=== PATIENT | female | born 1990 | race Caucasian/White ===

== ENCOUNTER 2016-07-07 20:51 | Emergency (ER) | payer SELFPAY ==
[2016-07-07 21:02] VITALS: BP 135/89
[2016-07-07] MEDS ORDERED: HYDROcodone/ACETAMIN 5-325 MG* 1 TAB PO ONE ×2 (21:27→21:28)
[2016-07-07] MEDS ORDERED: Azithromycin TAB* 250 MG PO ONE (22:03)
--- NOTE | 2016-07-07 22:10 | RAD ---
Indication: Right hand injury. 4 views of the right hand demonstrates internal fixation of a fifth metacarpal fracture. Fracture fragments are near anatomic alignment. IMPRESSION: Internal fixation fifth metacarpal fracture.
--- NOTE | 2016-07-07 22:28 | UC ---
Neri Ramirez Karl, scribed for Renetta Sutton MD on 07/07/16 at 2130 . Upper Extremity HPI - HPI Summary HPI Summary: Pt is a 25 y/o female that presents to [facility] c/o misplaced pins in her right hand /right 5th finger from a glove former fracture on 06/04/16. Pt had surgery on her right hand by DR. Lay (Ortho) on 06/13/16 but pins were bent into her finger after wrestling with her boyfriend 2 days ago which displaced them, digging them into her finger. Pt had removed the splint on her own. She states she had an allergic reaction to the padding. Did not get a chance to call orthopedics today until after they were closed for the day. - History of Current Complaint Chief Complaint: UCUpperExtremity Stated Complaint: RT HAND PAIN-BENT PIN Time Seen by Provider: 07/07/16 21:13 Hx Obtained From: Patient, Family/Inspector Plumbing - sister Hx Last Menstrual Period: 06/24/16 Onset/Duration: Sudden Onset, Lasting Days, Still Present Severity Initially: Moderate Severity Currently: Moderate Pain Intensity: 9 - right 5th finger Pain Scale Used: 0-10 Numeric Location Of Pain: Is Discrete @ - right 5th finger Character: Aching Aggravating Factor(s): Movement Alleviating Factor(s): Nothing Associated Signs And Symptoms: Positive: Swelling, Redness. Negative: Bruising , Fever Related History: Dominant Hand Right - Risk Factors Non-Orthopedic Risk Factor: Negative DVT Risk Factors: Negative Septic Arthritis Risk Factor: Negative - Allergies/Home Medications Allergies/Adverse Reactions: Allergies Allergy/AdvReac Type Severity Reaction Status Date / Time Adhesive Tape Allergy Severe Rash Verified 07/07/16 21:02 Amoxicillin Allergy Intermediate Hives Verified 07/07/16 21:02 DETERGENTS Allergy Rash Uncoded 06/13/16 10:27 Home Medications: Home Medications Ibuprofen TAB* [Advil TAB*] 1,000 mg PO PRN 07/07/16 [History] PMH/Surg Hx/FS Hx/Imm Hx Endocrine History Of: Reports: Diabetes - POSSIBLE, NO TESTING DONE Denies: Thyroid Disease, Hyperthyroidism, Hypothyroidism, Dyslipidemia Cardiovascular History Of: Denies: Cardiac Disorders, Hypertension, Pacemaker/ICD, Myocardial Infarction , Congestive Heart Failure, Atrial Fibrillation, Deep Vein Thrombosis, Bleeding Disorders Respiratory History Of: Denies: COPD, Asthma, Bronchitis, Pneumonia, Pulmonary Embolism GI/ History Of: Denies: Gastroesophageal Reflux, Ulcer, Gastrointestinal Bleed, Gall Bladder Disease, Kidney Stones, Diverticulitis, Renal Disease, Urosepsis Neurological History Of: Reports: Migraine - LATELY, EASED WITH TYLENOL OR ADVIL Denies: TIA, CVA, Dementia, Seizures Psychological History Of: Reports: Anxiety - No medications., Depression - For 12 years. 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 internal fixation right 5th digit 05/2016 - Family History Known Family History: Positive: Cardiac Disease, Hypertension, Diabetes - Social History Alcohol Use: None Alcohol Amount: HOLIDAYS ONLY Substance Use Type: None Smoking Status (MU): Current Every Day Smoker Type: Cigarettes Amount Used/How Often: 1/2 ppd. Have You Smoked in the Last Year: Yes - Immunization History Most Recent Influenza Vaccination: never Most Recent Tetanus Shot: none Most Recent Pneumonia Vaccination: never Review of Systems Constitutional: Negative Skin: Other - redness swelling near surgical pins right hand Eyes: Negative ENT: Negative Respiratory: Negative Cardiovascular: Negative Gastrointestinal: Negative Genitourinary: Negative Motor: Negative Neurovascular: Negative Musculoskeletal: Arthralgia - right hand/right 5th finger Neurological: Negative Psychological: Negative All Other Systems Reviewed And Are Negative: Yes Physical Exam Triage Information Reviewed: Yes Appearance: Well-Appearing, Well-Nourished, Pain Distress - mild Vital Signs: Initial Vital Signs Temp 97.1 F 07/07/16 20:56 Pulse 87 07/07/16 20:56 Resp 16 07/07/16 20:56 BP 135/89 07/07/16 20:56 Pulse Ox 100 07/07/16 20:56 Vital Signs Reviewed: Yes Eyes: Positive: Conjunctiva Clear ENT: Positive: Normal ENT inspection Neck: Positive: Supple Respiratory: Positive: No respiratory distress Cardiovascular: Positive: RRR, Pulses Normal, Brisk Capillary Refill Musculoskeletal: Positive: Strength Limited @ - right 5th finger, ROM Limited @ - right 5 th finger, Other: - swelling of right 5th finger MCP, surgical pins at MCP are rotated and almost piercing the skin, no redness, no wound; painful to touch; limited ROM right 5th finger Neurological: Positive: Alert, Muscle Tone Normal Psychological Exam: Normal Skin Exam: Normal Upper Extremity Course/Dx - Course Course Of Treatment: xray=healing fracture, pins in place - Differential Dx/Diagnosis Differential Diagnosis/HQI/PQRI: Fracture (Closed), Strain, Sprain Provider Diagnoses: rotated surgical pins after injury. s/p internal fixation of 5th metacarpal fracture Discharge - Discharge Plan Condition: Stable Disposition: HOME Prescriptions: Azithromycin TAB* [Zithromax TAB (Z-AMISHA)*] 250 mg PO DAILY #4 tab Patient Education Materials: [facility] (ED) Referrals: Harrison Wilburn MD [Medical Doctor] - 1 Day No Primary Care Phys,NOPCP [Primary Care Provider] - Additional Instructions: Dr. Sutton recommends that you should see Dr. Lay tomorrow 07/08/16, if possible. Otherwise please have any of the orthopedic providers see you tomorrow. Dr. Sutton gave your first dose of azithromycin to prevent infection. Go to the emergency room if you have new or worsening symptoms. The documentation as recorded by the Neri lowry Karl accurately reflects the service I personally performed and the decisions made by , Renetta Sutton MD.
== END 2016-07-07 22:15 | disposition home or self-care (01) ==
LOC: UCEAST 20:51
DX: T84.89XA Other specified complication of internal orthopedic prosthetic devices, implants and grafts, initial encounter (principal); Z88.0 Allergy status to penicillin; F17.210 Nicotine dependence, cigarettes, uncomplicated
CPT/HCPCS: 99213; A9270-GY; G0463

== ENCOUNTER 2017-01-15 10:36 | Emergency (ER) | payer MEDICAID | END 2017-01-15 11:30 | disposition left against medical advice (07) | LOC: UCEAST 10:36 | DX: M79.643 Pain in unspecified hand (principal); Z53.21 Procedure and treatment not carried out due to patient leaving prior to being seen by health care provider ==

== ENCOUNTER 2017-02-25 10:34 | Emergency (ER) | payer MEDICAID, OTHER ==
[2017-02-25] MEDS ORDERED: NS 0.9% 1000 ML* 1,000 ML IV ONE (11:46)
[2017-02-25 12:14] LABS: Hematocrit 35 % (35-47); Hemoglobin 11.6 g/dl (12.0-16.0); Mean Corpuscular HGB Conc 33 g/dl (31-36); Mean Corpuscular Hemoglobin 32 pg (27-31); Mean Corpuscular Volume 96 fL (80-97); Mean Platelet Volume 8 um3 (7.4-10.4); Red Blood Count 3.65 10^6/ul (4.0-5.4); Red Cell Distribution Width 12 % (10.5-15); White Blood Count 7.5 10^3/ul (3.5-10.8)
[2017-02-25 12:25] LABS: ALT 9 U/L (7-52); AST 11 U/L (13-39); Albumin 3.5 g/dL (3.2-5.2); Alkaline Phosphatase 33 U/L (34-104); Anion Gap 2 mmol/L (2-11); BUN/Creatinine Ratio 12.7 (8-20); Blood Urea Nitrogen 7 mg/dL (6-24); C Reactive Protein < 1.00 mg/L (< 5.00); CO2 Carbon Dioxide 27 mmol/L (22-32); Calcium 9.7 mg/dL (8.6-10.3); Chloride 109 mmol/L (101-111); EGFR African American 169.3 (>60); EGFR Non-African American 131.6 (>60); Globulin 2.6 g/dL (2-4); Glucose 88 mg/dL (70-100); Lipase 27 U/L (11.0-82.0); Potassium 3.6 mmol/L (3.5-5.0); Sodium 138 mmol/L (133-145); Total Protein 6.1 g/dL (6.4-8.9)
--- NOTE | 2017-02-25 12:38 | RAD ---
INDICATION: Right lower quadrant pain. COMPARISON: There are no prior studies available for comparison. TECHNIQUE: Multiple real-time images of the right lower quadrant were obtained using a graded compression technique. FINDINGS: No free intraperitoneal fluid or localized fluid collections are seen. The appendix was not visualized limiting the study. IMPRESSION: THE APPENDIX WAS NOT VISUALIZED LIMITING THE STUDY.
[2017-02-25 12:41] LABS: Urine Bacteria 1+ (Absent); Urine Bilirubin Negative (Negative); Urine Glucose Negative (Negative); Urine Nitrite Negative (Negative)
--- NOTE | 2017-02-25 12:45 | RAD ---
Indication: RIGHT lower quadrant pain. Early . Beta hCG 69. Comparison: August 28, 2009 ultrasound. Technique: Transvaginal pelvic/ obstetrical ultrasound. Report: 8.1 x 4.0 x 4.9 cm uterus with 7.9 mm endometrium. No intrauterine gestational sac evident. Trace fluid in the endocervical canal. 4.2 x 1.6 x 2.2 cm RIGHT ovary with documented vascular flow is remarkable for multiple small peripheral follicles only. 5.8 x 3.8 x 6.1 cm LEFT ovary with documented vascular flow is remarkable for a 4.5 x 3.3 x 4.8 cm cyst with a reticulated pattern of low level internal echoes devoid of intrinsic vascularity consistent with a hemorrhagic cyst. No extraovarian adnexal region lesions visualized. Trace physiologic range free fluid in the LEFT adnexal region. IMPRESSION: 1. No intrauterine gestation or suspicious adnexal region lesion evident. In absence of a documented IUP ectopic is not entirely excluded. Close beta-HCG, clinical, and sonographic follow-up suggested as deemed appropriate. 2. 4.5 cm LEFT intraovarian lesion consistent with a hemorrhagic cyst based on sonographic characteristics. Normal vascular flow to the LEFT ovary documented. In absence of an intervening clinical concern reassessment of this low suspicion lesion with ultrasound in approximate 1months time suggested.
[2017-02-25] MEDS ORDERED: Morphine INJ* 4 MG/ML 1 ML SYRINGE IV ONE (14:17)
[2017-02-25] MEDS ORDERED: Ondansetron INJ* 2 MG/ML VIAL IV ONE (14:17)
--- NOTE | 2017-02-25 14:28 | RAD ---
INDICATION: Right lower quadrant pain, hematuria COMPARISON: Comparison is made with a prior CT of the abdomen and pelvis April 30, 2015. TECHNIQUE: Multiple real-time images of the right kidney were obtained. FINDINGS: The right kidney is normal in size shape and echogenicity. The kidney measured 11.1 x 3.6 x 5.5 cm. No significant focal abnormality or hydronephrosis was present. There are symmetric bilateral ureterovesical jets present. IMPRESSION: NEGATIVE EXAM, NO EVIDENCE FOR HYDRONEPHROSIS.
[2017-02-25] MEDS ORDERED: Nitrofurantoin Macrocrystals* 50 MG CAP PO ONE (15:12)
--- NOTE | 2017-02-25 15:21 | ED ---
Charles Ramirez Alfonso, scribed for Osiel Dill MD on 02/25/17 at 1143 . Abdominal Pain/Female - HPI Summary HPI Summary: This patient is a 26 year old F presenting to [facility] accompanied by male with a chief complaint of RLQ abdominal pain gradually worsening since one week ago. The CC is described as sharp. The patient rates the pain 7/10 in severity. Symptoms aggravated by nothing. Symptoms alleviated by nothing. Patient reports constipation (few days). Patient denies fever, chills, loss of appetite, N/V, urinary symptoms, vaginal discharge, and rash. She reports being 6 weeks . A0. LMP in October. PSHx of left ovary tumor removal. Medications reviewed. - History of Current Complaint Chief Complaint: EDAbdPain Stated Complaint: 6WKS PREG/RT SIDE ABD PAIN Time Seen by Provider: 02/25/17 11:37 Hx Obtained From: Patient Hx Last Menstrual Period: May ?: Yes Onset/Duration: Gradual Onset, Lasting Weeks - 1, Still Present Timing: Weeks - 1 Severity Initially: Moderate Severity Currently: Moderate Pain Intensity: 7 Pain Scale Used: 0-10 Numeric Location: Discrete At: RLQ Character: Sharp Aggravating Factor(s): Nothing Alleviating Factor(s): Nothing Associated Signs and Symptoms: Positive: Other: - Patient reports constipation ( few days). Patient denies fever, chills, loss of appetite, N/V, urinary symptoms , vaginal discharge, and rash. Allergies/Adverse Reactions: Allergies Allergy/AdvReac Type Severity Reaction Status Date / Time Adhesive Tape Allergy Severe Rash Verified 02/25/17 10:43 Amoxicillin Allergy Intermediate Hives Verified 02/25/17 10:43 DETERGENTS Allergy Rash Uncoded 02/25/17 10:43 PMH/Surg Hx/FS Hx/Imm Hx Endocrine/Hematology History: Reports: Hx Diabetes - POSSIBLE, NO TESTING DONE Denies: Hx Anticoagulant Therapy, Hx Thyroid Disease Cardiovascular History: Denies: Hx Congestive Heart Failure, Hx Deep Vein Thrombosis, Hx Hypertension , Hx Myocardial Infarction, Hx Pacemaker/ICD, Other Cardiovascular Problems/ Disorders Respiratory History: Denies: Hx Asthma, Hx Chronic Obstructive Pulmonary Disease (COPD), Hx Lung Cancer, Hx Pneumonia, Hx Pulmonary Embolism, Other Respiratory Problems/ Disorders GI History: Denies: Hx Gall Bladder Disease, Hx Gastrointestinal Bleed, Hx Ulcer, Hx Urosepsis, Other GI Disorders History: Reports: Hx Kidney Infection Denies: Hx Kidney Stones, Hx Renal Disease Musculoskeletal History: Reports: Hx Tendonitis - RIGHT ELBOW Sensory History: Reports: Hx Contacts or Glasses - GLASSES Denies: Hx Hearing Aid Opthamlomology History: Reports: Hx Contacts or Glasses - GLASSES Neurological History: Reports: Hx Migraine - LATELY, EASED WITH TYLENOL OR ADVIL Denies: Hx Dementia, Hx Seizures, Hx Transient Ischemic Attacks (TIA), Other Neuro Impairments/Disorders Psychiatric History: Reports: Hx Anxiety - No medications., Hx Depression - For 12 years. 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 internal fixation right 5th digit 05/2016. left ovary tumor removal. Hx Anesthesia Reactions: Yes - N/V Infectious Disease History: No Infectious Disease History: Denies: Hx Clostridium Difficile, Hx Hepatitis, Hx Human Immunodeficiency Virus (HIV), Hx of Known/Suspected MRSA, Hx Shingles, Hx Tuberculosis, Hx Known/ Suspected VRE, Hx Known/Suspected VRSA, History Other Infectious Disease, Traveled Outside the [place] in Last 30 Days - Family History Known Family History: Positive: Cardiac Disease, Hypertension, Diabetes - Social History Alcohol Use: None Alcohol Amount: HOLIDAYS ONLY Substance Use Type: Reports: None Hx Tobacco Use: Yes Smoking Status (MU): Current Every Day Smoker Type: Cigarettes Amount Used/How Often: 1/2 ppd. Have You Smoked in the Last Year: Yes Review of Systems Negative: Fever, Chills Positive: Abdominal Pain, Other - Constipation; negative loss of appetite. Negative: Vomiting, Nausea Positive: no symptoms reported, other - Negative vaginal discharge Negative: Rash All Other Systems Reviewed And Are Negative: Yes Physical Exam Triage Information Reviewed: Yes Vital Signs On Initial Exam: Initial Vitals Temp Pulse Resp BP Pulse Ox 98.4 F 93 16 120/68 100 02/25/17 10:43 02/25/17 10:43 02/25/17 10:43 02/25/17 10:43 02/25/17 10:43 Vital Signs Reviewed: Yes Appearance: Positive: Well-Appearing, No Pain Distress Skin: Positive: Warm, Skin Color Reflects Adequate Perfusion, Dry Head/Face: Positive: Normal Head/Face Inspection Eyes: Positive: EOMI, FREDERIC ENT: Positive: Normal ENT inspection Neck: Positive: Supple, Nontender Respiratory/Lung Sounds: Positive: Clear to Auscultation, Breath Sounds Present Cardiovascular: Positive: RRR Abdomen Description: Positive: Other: - RLQ tenderness Bowel Sounds: Positive: Hypoactive Pelvic Exam: Positive: other - Normal exam. Female RN present. Affirm and GC chlamydia was obtained. Musculoskeletal: Positive: Strength/ROM Intact, Other - Tender to heal strike on right. Negative obturator sign. Neurological: Positive: Normal, Sensory/Motor Intact, Alert, Oriented to Person Place, Time Psychiatric: Positive: Affect/Mood Appropriate - L[place]a Coma Scale Coma Scale Total: 15 Diagnostics - Vital Signs Vital Signs Temp Pulse Resp BP Pulse Ox 02/25/17 11:27 99.3 F 93 16 120/68 99 02/25/17 10:43 98.4 F 93 16 120/68 100 - Laboratory Lab Results: Lab Results 02/25/17 02/25/17 02/25/17 Range/Units 11:59 11:59 11:59 WBC (3.5-10.8) 10^3/ul RBC (4.0-5.4) 10^6/ul Hgb (12.0-16.0) g/dl Hct (35-47) % MCV (80-97) fL MCH (27-31) pg MCHC (31-36) g/dl RDW (10.5-15) % Plt Count (150-450) 10^3/ul MPV (7.4-10.4) um3 Neut % (Auto) (38-83) % Lymph % (Auto) (25-47) % [place] % (Auto) (1-9) % Eos % (Auto) (0-6) % Baso % (Auto) (0-2) % Absolute Neuts (auto) (1.5-7.7) 10^3/ul Absolute Lymphs (auto) (1.0-4.8) 10^3/ul Absolute Monos (auto) (0-0.8) 10^3/ul Absolute Eos (auto) (0-0.6) 10^3/ul Absolute Basos (auto) (0-0.2) 10^3/ul Absolute Nucleated RBC 10^3/ul Nucleated RBC % INR (Anticoag Therapy) 0.97 (0.89-1.11) APTT 30.6 (26.0-36.3) seconds Sodium 138 (133-145) mmol/L Potassium 3.6 (3.5-5.0) mmol/L Chloride 109 (101-111) mmol/L Carbon Dioxide 27 (22-32) mmol/L Anion Gap 2 (2-11) mmol/L BUN 7 (6-24) mg/dL Creatinine 0.55 (0.51-0.95) mg/dL Est GFR ( Amer) 169.3 (>60) Est GFR (Non-Af Amer) 131.6 (>60) BUN/Creatinine Ratio 12.7 (8-20) Glucose 88 (70-100) mg/dL Lactic Acid (0.5-2.0) mmol/L Calcium 9.7 (8.6-10.3) mg/dL Total Bilirubin 0.20 (0.2-1.0) mg/dL AST 11 L (13-39) U/L ALT 9 (7-52) U/L Alkaline Phosphatase 33 L (34-104) U/L C-Reactive Protein < 1.00 (< 5.00) mg/L Total Protein 6.1 L (6.4-8.9) g/dL Albumin 3.5 (3.2-5.2) g/dL Globulin 2.6 (2-4) g/dL Albumin/Globulin Ratio 1.3 (1-3) Lipase 27 (11.0-82.0) U/L Beta HCG, Quant 69.79 mIU/mL Urine Color Urine Appearance Urine pH (5-9) Ur Specific [place] (1.010-1.030) Urine Protein (Negative) Urine Ketones (Negative) Urine Blood (Negative) Urine Nitrate (Negative) Urine Bilirubin (Negative) Urine Urobilinogen (Negative) Ur Leukocyte Esterase (Negative) Urine WBC (Auto) (Absent) Urine RBC (Auto) (Absent) Ur Squamous Epith Cells (Absent) Calcium Oxalate Crystal (Absent) Urine Bacteria (Absent) Hyaline Casts (Absent) Urine Glucose (Negative) Urine Ascorbic Acid (Negative) Blood Type A Positive 02/25/17 02/25/17 02/25/17 Range/Units 11:59 11:59 12:02 WBC 7.5 (3.5-10.8) 10^3/ul RBC 3.65 L (4.0-5.4) 10^6/ul Hgb 11.6 L (12.0-16.0) g/dl Hct 35 (35-47) % MCV 96 (80-97) fL MCH 32 H (27-31) pg MCHC 33 (31-36) g/dl RDW 12 (10.5-15) % Plt Count 262 (150-450) 10^3/ul MPV 8 (7.4-10.4) um3 Neut % (Auto) 53.9 (38-83) % Lymph % (Auto) 37.9 (25-47) % [place] % (Auto) 7.0 (1-9) % Eos % (Auto) 0.7 (0-6) % Baso % (Auto) 0.5 (0-2) % Absolute Neuts (auto) 4.0 (1.5-7.7) 10^3/ul Absolute Lymphs (auto) 2.8 (1.0-4.8) 10^3/ul Absolute Monos (auto) 0.5 (0-0.8) 10^3/ul Absolute Eos (auto) 0.1 (0-0.6) 10^3/ul Absolute Basos (auto) 0 (0-0.2) 10^3/ul Absolute Nucleated RBC 0 10^3/ul Nucleated RBC % 0 INR (Anticoag Therapy) (0.89-1.11) APTT (26.0-36.3) seconds Sodium (133-145) mmol/L Potassium (3.5-5.0) mmol/L Chloride (101-111) mmol/L Carbon Dioxide (22-32) mmol/L Anion Gap (2-11) mmol/L BUN (6-24) mg/dL Creatinine (0.51-0.95) mg/dL Est GFR ( Amer) (>60) Est GFR (Non-Af Amer) (>60) BUN/Creatinine Ratio (8-20) Glucose (70-100) mg/dL Lactic Acid 1.5 (0.5-2.0) mmol/L Calcium (8.6-10.3) mg/dL Total Bilirubin (0.2-1.0) mg/dL AST (13-39) U/L ALT (7-52) U/L Alkaline Phosphatase (34-104) U/L C-Reactive Protein (< 5.00) mg/L Total Protein (6.4-8.9) g/dL Albumin (3.2-5.2) g/dL Globulin (2-4) g/dL Albumin/Globulin Ratio (1-3) Lipase (11.0-82.0) U/L Beta HCG, Quant mIU/mL Urine Color Yellow Urine Appearance Cloudy Urine pH 5.0 (5-9) Ur Specific [place] 1.020 (1.010-1.030) Urine Protein 1+(30 mg/dl) H (Negative) Urine Ketones Trace H (Negative) Urine Blood Negative (Negative) Urine Nitrate Negative (Negative) Urine Bilirubin Negative (Negative) Urine Urobilinogen Negative (Negative) Ur Leukocyte Esterase Trace H (Negative) Urine WBC (Auto) 1+(6-10/hpf) H (Absent) Urine RBC (Auto) 2+(6-10/hpf) H (Absent) Ur Squamous Epith Cells Present H (Absent) Calcium Oxalate Crystal Present H (Absent) Urine Bacteria 1+ H (Absent) Hyaline Casts Present H (Absent) Urine Glucose Negative (Negative) Urine Ascorbic Acid * H (Negative) Blood Type Result Diagrams: 02/25/17 11:59 02/25/17 11:59 Lab Statement: Any lab studies that have been ordered have been reviewed, and results considered in the medical decision making process. - Additional Comments Diagnostic Additional Comments: Abdominal US reveals, per radiologist, THE APPENDIX WAS NOT VISUALIZED LIMITING THE STUDY. ED physician has reviewed this radiology report and agrees. US reveals, per radiologist, 1. No intrauterine gestation or suspicious adnexal region lesion evident. In absence of a documented IUP ectopic is not entirely excluded. Close beta-HCG, clinical, and sonographic follow-up suggested as deemed appropriate. 2. 4.5 cm LEFT intraovarian lesion consistent with a hemorrhagic cyst based on sonographic characteristics. Normal vascular flow to the LEFT ovary documented. In absence of an intervening clinical concern reassessment of this low suspicion lesion with ultrasound in approximate 1months time suggested. ED physician has reviewed this radiology report and agrees. Renal US reveals, per radiologist, NEGATIVE EXAM, NO EVIDENCE FOR HYDRONEPHROSIS. ED physician has reviewed this radiology report and agrees. Abdominal Pain Fem Course/Dx - Course Course Of Treatment: DISCUSSED RESULTS WITH PATIENT/. DISCUSSED WITH OBGYN, DR CRUZ; WITH LOW QUANT HCG RISK OF COMPLICATIONS LOW. THE PLAN IS TO GET THE QUANT HCG RECHECKED AND HAVE OB F/U IN 2 DAYS, 02/27/17. DISCUSSED WITH SURGERY, DR KELLOGG. THE DAVE SCORE IS LOW MAKING APPENDICITIS RISK LOW. WILL START MACROBID FOR THE WBCS IN THE URINE. NO HYDO WITH GOOD JETS SO, KIDNEY STONES UNLIKELY. PATIENT WILL F/U WITH OB. SHE WILL RETURN TO THE ED IF HER CONDITION WORSENS OR QUESTIONS OR CONCERNS. - Diagnoses Provider Diagnoses: Abdominal pain during - Provider Notifications Discussed Care Of Patient With: Jc Cruz Time Discussed With Above Provider: 13:55 Instructed by Provider To: Other - Consulted Dr. Cruz (OBGYN) at 1355 who thinks it is either a failed ectopic or failed uterine . He recommends a beta HCG quantitative recheck in two days and follow up with OBGYN in two days. Consulted Dr. Kellogg (surgeon) at 1444 who states because of a low dave score at this time the patient can follow up as an out patient. Discharge - Discharge Plan Condition: Stable Disposition: HOME Prescriptions: HYDROcodone/ACETAMIN 5-325 MG* [[place] 5-325 TAB*] 1 tab PO Q4H PRN #20 tab MDD 6 PRN Reason: Pain Nitrofurantoin Monohyd Macro [Macrobid] 100 mg PO BID #14 cap Patient Education Materials: Abdominal Pain in (ED) Referrals: [facility] [Outside] Jc Cruz MD [Medical Doctor] - 2 Days [facility] [Provider Group] Additional Instructions: GET YOUR BLOOD TEST RECHECKED AND FOLLOW UP WITH OBGYN IN 2 DAYS, . CALL [facility] TODAY TO ARRANGE FOLLOW UP. RETURN TO THE EMERGENCY DEPARTMENT FOR ANY WORSENING OF YOUR CONDITION; PAIN, FEVER, YOU FEEL ILL, YOU FEEL LIKE PASSING OUT, ABNORMAL VAGINAL BLEEDING OR QUESTIONS OR CONCERNS. The documentation as recorded by the Charles lowry Alfonso accurately reflects the service I personally performed and the decisions made by me, Osiel Dill MD.
[2017-02-25 15:46] VITALS: BP 110/87
== END 2017-02-25 15:47 | disposition home or self-care (01) ==
LOC: ED 10:34
DX: Z3A.01 Less than 8 weeks gestation of pregnancy (principal); R10.31 Right lower quadrant pain; O26.891 Other specified pregnancy related conditions, first trimester; N83.9 Noninflammatory disorder of ovary, fallopian tube and broad ligament, unspecified; K59.00 Constipation, unspecified; Z88.1 Allergy status to other antibiotic agents; Z91.048 Other nonmedicinal substance allergy status; F17.210 Nicotine dependence, cigarettes, uncomplicated
CPT/HCPCS: 36415; 76705; 76775; 76801; 80053; 81003; 81015; 83605; 83690; 84702; 85025; 85610; 85730; 86140; 86900; 86901; 87077; 87086; 87186; 87480; 87491; 87510; 87591; 87661; 96361; 96374; 96375; 99284; A9270-GY; J2270; J2405

== ENCOUNTER 2017-09-06 15:19 | Emergency (ER) | payer OTHER ==
[2017-09-06 16:28] LABS: Urine Appearance Turbid; Urine Color Red
[2017-09-06 18:20] LABS: ABS Basophils 0.1 10^3/ul (0-0.2); ABS Eosinophils 0.1 10^3/ul (0-0.6); ABS Lymphocytes 3.1 10^3/ul (1.0-4.8); ABS Monocytes 0.6 10^3/ul (0-0.8); ABS Nucleated RBC 0 10^3/ul; Eosinophil % 0.7 % (0-6); Hematocrit 37 % (35-47); Hemoglobin 12.5 g/dl (12.0-16.0); Lymphocyte % 35.1 % (25-47); Mean Corpuscular HGB Conc 34 g/dl (31-36); Mean Corpuscular Hemoglobin 31 pg (27-31); Mean Corpuscular Volume 94 fL (80-97); Mean Platelet Volume 7 um3 (7.4-10.4); Nucleated Red Blood Cells % 0; Platelet Count 451 10^3/ul (150-450); Red Cell Distribution Width 13 % (10.5-15); White Blood Count 8.8 10^3/ul (3.5-10.8)
[2017-09-06 18:28] LABS: INR 0.88 (0.77-1.02)
[2017-09-06 18:37] VITALS: BP 109/63
[2017-09-06 18:38] LABS: EGFR Non-African American 143.6 (>60)
--- NOTE | 2017-09-06 18:53 | RAD ---
CLINICAL HISTORY: Flank pain, hematuria COMPARISON: April 30, 2015 TECHNIQUE: Multiple contiguous axial CT scans were obtained of the abdomen and pelvis, without intravenous contrast enhancement. Coronal and sagittal multiplanar reformations are submitted for review. Oral contrast was not administered. FINDINGS: The study is limited by the lack of intravenous contrast. This limits evaluation of the solid organs and vasculature. LUNG BASES: The lung bases are clear. LIVER: The liver is normal in shape, size, contour, and attenuation. BILE DUCTS: There is no intrahepatic or extrahepatic biliary dilatation. GALLBLADDER: The gallbladder is incompletely distended but is grossly normal PANCREAS: The pancreas is normal, without mass or ductal dilatation. SPLEEN: Normal in size and appearance. UPPER GI TRACT: Evaluation of the gastrointestinal tract is limited by incomplete gastric distention. The upper GI tract is unremarkable. SMALL BOWEL AND MESENTERY: The small bowel is normal in contour, course, and caliber. There is no obstruction or dilatation. COLON: The colon is normal in contour, course, caliber. There is no pericolonic inflammatory change. There is a tubular, vermiform, hollow viscus that is blind ending, and originates from the cecum, consistent with a normal appendix. There is no periappendiceal inflammatory change. This is best seen on coronal image 42 ADRENALS: Normal bilaterally. KIDNEYS: There are punctate calyceal stones bilaterally. There is no appreciable hydronephrosis. BLADDER: The bladder is smooth in contour. PELVIC ORGANS: There is a 5.8 cm cyst of the right hemipelvis. The pelvic organs are otherwise unremarkable. AORTA: The aorta is normal. IVC: Unremarkable LYMPH NODES: There is no lymphadenopathy by size criteria. ABDOMINAL WALL: There is no evidence for abdominal wall hernia. BONES AND SOFT TISSUES: Unremarkable OTHER: None IMPRESSION: 1. PUNCTATE NONOBSTRUCTING RENAL CALYCEAL STONES BILATERALLY. 2. 5.8 CM CYST OF THE RIGHT HEMIPELVIS, LIKELY A LARGE OVARIAN CYST.
[2017-09-06] MEDS ORDERED: Ondansetron INJ* 2 MG/ML VIAL IV ONE (19:20)
[2017-09-06] MEDS ORDERED: HYDROmorphone INJ* 1 MG/ML CARPUJECT SYRINGE IV ONE (19:20)
--- NOTE | 2017-09-06 20:36 | RAD ---
HISTORY: Gross hematuria, right-sided pelvic pain COMPARISONS: CT dated September 06, 2012, pelvic ultrasound dated August 28, 2009 TECHNIQUE: Multiple transverse and longitudinal ultrasound images were obtained of the pelvis using grayscale, color Doppler, and spectral Doppler imaging using the endovaginal transducer. FINDINGS: UTERUS: The uterus measures 7.4 x 3.6 x 4.7 cm. The uterus is normal in shape, size, contour, and echotexture. There is a small cervical nabothian cyst. ENDOMETRIUM: The endometrial stripe is smooth. The endometrium measures 0.7 cm in thickness. CUL-DE-SAC: There is no free fluid within the cul-de-sac. RIGHT OVARY: The right ovary measures 6.2 x 4.6 x 4.5 cm. There is a 5.6 x 3.5 x 3.8 cm cyst with retracting clot consistent with a hemorrhagic cyst. Normal arterial and venous waveforms are identifiable within the ovary on spectral Doppler imaging. LEFT OVARY: The left ovary measures 3.2 x 2.2 x 2.4 cm. Multiple follicles are noted. Normal arterial and venous waveforms are identifiable within the ovary on spectral Doppler imaging. BLADDER: The bladder is not well visualized. OTHER: None IMPRESSION: 1. 5.6 CM HEMORRHAGIC CYST OF THE RIGHT OVARY. 2. NO SONOGRAPHIC FEATURES OF TORSION. PLEASE NOTE THAT PARTIAL OR INTERMITTENT TORSION MAY BE SONOGRAPHICALLY NORMAL.
[2017-09-06] MEDS ORDERED: HYDROcodone/ACETAMIN 5-325 MG* 1 TAB PO ONE (20:53)
[2017-09-06] MEDS ORDERED: HYDROmorphone INJ* 1 MG/ML CARPUJECT SYRINGE ONE (22:20)
--- NOTE | 2017-09-07 10:41 | ED ---
Flex Ramirez Jason, scribed for Vicente Delgado MD on 09/06/17 at 1656 . Abdominal Pain/Female - HPI Summary HPI Summary: This patient is a 26 year old F presenting to [facility] accompanied by male health and wellness manager with a chief complaint of right flank pain since 1 month ago. The patient states she has experienced Intermittent right flank pain for 1 month and Urinated blood for 1 week. She describes it as Sometimes its a sharp stabbing pain and then itll go away. Patient includes she has had previous kidney infections and has not had an abdominal surgery. The patient rates the pain 8/10 in severity. Symptoms aggravated by nothing. Symptoms alleviated by nothing. - History of Current Complaint Chief Complaint: EDFlankPain Stated Complaint: BLOODY URINE Time Seen by Provider: 09/06/17 16:47 Hx Obtained From: Patient Hx Last Menstrual Period: October Onset/Duration: Gradual Onset, Lasting Weeks - 1 month, Still Present Timing: Intermittent Episode Lasting Pain Intensity: 8 Pain Scale Used: 0-10 Numeric Location: Flank - right Radiates to: Flank Character: Sharp Aggravating Factor(s): Nothing Alleviating Factor(s): Nothing Associated Signs and Symptoms: Positive: Urinary Symptoms - blood in urine, Other: - right flank pain Allergies/Adverse Reactions: Allergies Allergy/AdvReac Type Severity Reaction Status Date / Time Adhesive Tape Allergy Severe Rash Verified 02/25/17 10:43 amoxicillin Allergy Intermediate Hives Verified 09/06/17 17:36 DETERGENTS Allergy Rash Uncoded 02/25/17 10:43 PMH/Surg Hx/FS Hx/Imm Hx Previously Healthy: No Endocrine/Hematology History: Reports: Hx Diabetes - POSSIBLE, NO TESTING DONE Denies: Hx Anticoagulant Therapy, Hx Thyroid Disease Cardiovascular History: Denies: Hx Congestive Heart Failure, Hx Deep Vein Thrombosis, Hx Hypertension , Hx Myocardial Infarction, Hx Pacemaker/ICD, Other Cardiovascular Problems/ Disorders Respiratory History: Denies: Hx Asthma, Hx Chronic Obstructive Pulmonary Disease (COPD), Hx Lung Cancer, Hx Pneumonia, Hx Pulmonary Embolism, Other Respiratory Problems/ Disorders GI History: Denies: Hx Gall Bladder Disease, Hx Gastrointestinal Bleed, Hx Ulcer, Hx Urosepsis, Other GI Disorders History: Reports: Hx Kidney Infection Denies: Hx Kidney Stones, Hx Renal Disease Musculoskeletal History: Reports: Hx Tendonitis - RIGHT ELBOW Sensory History: Reports: Hx Contacts or Glasses - GLASSES Denies: Hx Hearing Aid Opthamlomology History: Reports: Hx Contacts or Glasses - GLASSES Neurological History: Reports: Hx Migraine - LATELY, EASED WITH TYLENOL OR ADVIL Denies: Hx Dementia, Hx Seizures, Hx Transient Ischemic Attacks (TIA), Other Neuro Impairments/Disorders Psychiatric History: Reports: Hx Anxiety - No medications., Hx Depression - For 12 years. 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 internal fixation right 5th digit 05/2016. left ovary tumor removal. Hx Anesthesia Reactions: Yes - N/V Infectious Disease History: No Infectious Disease History: Denies: Hx Clostridium Difficile, Hx Hepatitis, Hx Human Immunodeficiency Virus (HIV), Hx of Known/Suspected MRSA, Hx Shingles, Hx Tuberculosis, Hx Known/ Suspected VRE, Hx Known/Suspected VRSA, History Other Infectious Disease, Traveled Outside the [place] in Last 30 Days - Family History Known Family History: Positive: Cardiac Disease, Hypertension, Diabetes - Social History Alcohol Use: None Alcohol Amount: HOLIDAYS ONLY Substance Use Type: Reports: None Hx Tobacco Use: Yes Smoking Status (MU): Current Every Day Smoker Type: Cigarettes Amount Used/How Often: 1/2 ppd. Have You Smoked in the Last Year: Yes Review of Systems Positive: Abdominal Pain - right flank Positive: hematuria All Other Systems Reviewed And Are Negative: Yes Physical Exam - Summary Physical Exam Summary: Appearance: The patient is well-nourished in no acute distress and in no acute pain. Skin: The skin is warm and dry and skin color reflects adequate perfusion. HEENT: ~The head is normocephalic and atraumatic. The pupils are equal and reactive. The conjunctivae are clear and without drainage. ~Nares are patent and without drainage. Mouth reveals moist mucous membranes and the throat is without erythema and exudate. The external ears are intact. The ear canals are patent and without drainage. The tympanic membranes are intact. Neck: the neck is supple with full range of motion and non-tender. There are no carotid bruits. ~There is no neck vein distension. Respiratory: Chest is non-tender. ~Lungs are clear to auscultation and breath sounds are symmetrical and equal. Cardiovascular: Heart is regular rate and rhythm. ~There is no murmur or rub auscultated. ~~There is no peripheral edema and pulses are symmetrical and equal. Abdomen: The abdomen is soft and non-tender. ~There are normal bowel sounds heard in all four quadrants and there is no organomegaly palpated. Musculoskeletal: There is no back tenderness noted. ~Extremities are non-tender with full range of motion. ~There is good capillary refill. There is no peripheral edema or calf tenderness elicited. Neurological: Patient is alert and oriented to person, place and time. ~The patient has symmetrical motor strength in all four extremities. ~Cranial nerves are grossly intact. Deep tendon reflexes are symmetrical and equal in all four extremities. Psychiatric: The patient has an appropriate affect and does not exhibit any anxiety or depression. Triage Information Reviewed: Yes Vital Signs On Initial Exam: Initial Vitals Temp Pulse Resp BP Pulse Ox 98.9 F 100 17 129/71 100 09/06/17 15:31 09/06/17 15:31 09/06/17 15:31 09/06/17 15:31 09/06/17 15:31 Vital Signs Reviewed: Yes Diagnostics - Vital Signs Vital Signs Temp Pulse Resp BP Pulse Ox 09/06/17 16:38 94 120/66 99 09/06/17 15:31 98.9 F 100 17 129/71 100 - Laboratory Lab Results: Lab Results 09/06/17 Range/Units 16:00 Urine Color Red A Urine Appearance Turbid Urine pH (5-9) Ur Specific Johnson (1.010-1.030) Urine Protein (Negative) Urine Ketones (Negative) Urine Blood (Negative) Urine Nitrate (Negative) Urine Bilirubin (Negative) Urine Urobilinogen (Negative) Ur Leukocyte Esterase (Negative) Urine WBC (Auto) Trace(0-5/hpf) (Absent) Urine RBC (Auto) 3+(>10/hpf) A (Absent) Ur Squamous Epith Cells Present A (Absent) Urine Bacteria Absent (Absent) Urine Glucose (Negative) Urine Ascorbic Acid (Negative) Result Diagrams: 09/06/17 18:13 09/06/17 18:13 Lab Statement: Any lab studies that have been ordered have been reviewed, and results considered in the medical decision making process. - CT abdomen/pelvis CT Interpretation Completed By: Radiologist - 1. PUNCTATE NONOBSTRUCTING RENAL CALYCEAL STONES BILATERALLY. 2. 5.8 CM CYST OF THE RIGHT HEMIPELVIS, LIKELY A LARGE OVARIAN CYST. ED physician has reviewed this radiology report - Additional Comments Diagnostic Additional Comments: Transvaginal Ultrasound reveals, per radiologist: 1. 5.6 CM HEMORRHAGIC CYST OF THE RIGHT OVARY. 2. NO SONOGRAPHIC FEATURES OF TORSION. PLEASE NOTE THAT PARTIAL OR INTERMITTENT TORSION MAY BE SONOGRAPHICALLY NORMAL. ED physician has reviewed this radiology report. Abdominal Pain Fem Course/Dx - Course Course Of Treatment: Ms. Koenig presented with right flank pain for a couple weeks and now gross hematuria starting today. I was conderned about a stone and obtained a CT which only showed a large right ovarian cyst. U/S revealed that the cyst was hemorrhagic. I'm not sure of the etiology of her hematuria. The U/A showed no sign of infection and I recommended symptomatic treatment and F/U for both issues. - Diagnoses Provider Diagnoses: Hematuria, Hemorrhagic cyst of right ovary Discharge - Discharge Plan Condition: Stable Disposition: HOME Prescriptions: HYDROcodone/ACETAMIN 5-325 MG* [[place] 5-325 TAB*] 1 tab PO Q6H PRN #20 tab MDD 4 PRN Reason: Pain Patient Education Materials: Ovarian Cyst (ED) Referrals: No Primary Care Phys,NOPCP [Primary Care Provider] - Cassie Villalpando MD [Medical Doctor] - 3 Days Additional Instructions: RETURN TO THE EMERGENCY DEPARTMENT FOR CHANGING OR WORSENING SYMPTOMS. The documentation as recorded by the Flex lowry Jason accurately reflects the service I personally performed and the decisions made by me, Vicente Delgado MD.
--- NOTE | 2017-09-08 09:23 | PN ---
Progress Note - Progress Note Date of Service: 09/06/17 Note: patient was attempted to be contacted. spoke with patient's mother and left a message for patient to return phonecall. want to see how patient is doing. was diagnosed with ovarian cyst and hematuria. was not having any symptoms of UTI other than hematuria. had 50-75,000 of e. coli grow on urine culture. will wait for return phonecall and if patient is feeling better, no treatment required. insignificant amount to require treatment.
--- NOTE | 2017-09-10 12:45 | PN ---
Progress Note - Progress Note Date of Service: 09/10/17 Note: Patient placed on Bactrim for UTI which final culture shows is sensitive to. no further action required.
== END 2017-09-06 21:40 | disposition home or self-care (01) ==
LOC: ED 15:19
DX: N83.201 Unspecified ovarian cyst, right side (principal); R31.9 Hematuria, unspecified; Z32.02 Encounter for pregnancy test, result negative
CPT/HCPCS: 36415; 74176; 76830; 80053; 81003; 83605; 83690; 84702; 85025; 85610; 86140; 87077; 87086; 87186; 96374; 96375; 96376; 99283; J1170; J2405